=== PATIENT | male | born 1975 | race Caucasian/White ===

== ENCOUNTER 2017-02-14 12:49 | Observation (INO) | payer MEDICAID, OTHER ==
[2017-02-14] MEDS ORDERED: NORMAL SALINE 1000 ML 1,000 ML IV ONE (14:01)
[2017-02-14] MEDS ORDERED: VANCOMYCIN HCL INJ 1000 MG VIAL IV ONE (14:03)
--- NOTE | 2017-02-14 14:04 | ER Document Report ---
ED Medical Screen (RME) - General Chief Complaint: Abscess Stated Complaint: FEVER Time Seen by Provider: 02/14/17 14:01 Notes: Patient states he fell against a car door on Sunday. He states that initially started as a small straight. But now it has progressed and become red swollen and tender. He also states he is having swelling and tenderness in his joints and has fever and body aches. He states that he did inject IV drugs in the past but has not done any IV drugs in over one year. TRAVEL OUTSIDE OF THE [place] IN LAST 30 DAYS: No - Related Data Allergies/Adverse Reactions: No Known Allergies Allergy (Verified 02/14/17 13:04) Past Medical History - Social History Chew tobacco use (# tins/day): No Frequency of alcohol use: None Drug Abuse: None Renal/ Medical History: Denies: Hx Peritoneal Dialysis Physical Exam - Vital signs Vitals: Temp Pulse Resp BP Pulse Ox 100.1 F 100 18 151/103 H 100 02/14/17 13:03 02/14/17 13:03 02/14/17 13:03 02/14/17 13:03 02/14/17 13:03 Course - Vital Signs Vital signs: Temp Pulse Resp BP Pulse Ox 100.1 F 100 18 151/103 H 100 02/14/17 13:03 02/14/17 13:03 02/14/17 13:03 02/14/17 13:03 02/14/17 13:03
--- NOTE | 2017-02-14 14:58 | ER Document Report ---
ED Skin Rash/Insect Bite/Abscs <HOWARD FENTON - Last Filed: 02/14/17 19:29> - General Mode of Arrival: Ambulatory Information source: Patient TRAVEL OUTSIDE OF THE [place] IN LAST 30 DAYS: No <TERENCE HUSSEIN - Last Filed: 02/15/17 10:40> - General Chief Complaint: Abscess Stated Complaint: FEVER Time Seen by Provider: 02/14/17 14:01 Notes: Patient is a 41-year-old male that presents to the emergency department today with complaints of an infection to the right side of his neck. Patient states that he has a history of iv drug abuse but he has not used in x1.5 years. Patient states that he lost his balance four days ago and hit his neck on the corner of a car door which caused a scrape. Patient states he had a fever of 102 yesterday. (TERENCE HUSSEIN) - Related Data Allergies/Adverse Reactions: No Known Allergies Allergy (Verified 02/14/17 13:04) Home Medications: Current Home Medications Clonidine HCl [Catapres 0.2 mg Tablet] 0.2 mg PO QHS 02/14/17 [History] Mirtazapine [Remeron 15 mg Tablet] 15 mg PO QHS 02/14/17 [History] Venlafaxine HCl [Venlafaxine HCl ER] 150 mg PO DAILY 02/14/17 [History] Past Medical History - General Information source: Patient - Social History Smoking Status: Current Every Day Smoker Cigarette use (# per day): Yes Chew tobacco use (# tins/day): No Frequency of alcohol use: None Drug Abuse: None, Other - Hx of IV drug abuse, non in the last year Family History: Reviewed & Not Pertinent - Medical History Medical History: Negative Surgical Hx: Negative <TERENCE HUSSEIN - Last Filed: 02/15/17 10:40> Review of Systems - Review of Systems Constitutional: No symptoms reported EENT: No symptoms reported Cardiovascular: No symptoms reported Respiratory: No symptoms reported Gastrointestinal: No symptoms reported Genitourinary: No symptoms reported Male Genitourinary: No symptoms reported Musculoskeletal: No symptoms reported Skin: See HPI, Other - abscess to right neck Hematologic/Lymphatic: No symptoms reported Neurological/Psychological: No symptoms reported -: Yes All other systems reviewed and negative <TERENCE HUSSEIN - Last Filed: 02/15/17 10:40> Physical Exam <HOWARD FENTON - Last Filed: 02/14/17 19:29> <TERENCE HUSSEIN - Last Filed: 02/15/17 10:40> - Vital signs Vitals: Temp Pulse Resp BP Pulse Ox 100.1 F 100 18 151/103 H 100 02/14/17 13:03 02/14/17 13:03 02/14/17 13:03 02/14/17 13:03 02/14/17 13:03 - Notes Notes: Physical Exam: General: Alert, appears well. HEENT: Normocephalic. Atraumatic. PERRL. Extraocular movements intact. Oropharynx clear. Neck: Supple. Indurated area to right anterior neck, 5x5 cm area of erythema with central scab, no fluctuance or purulent drainage. Respiratory: No respiratory distress. Clear and equal breath sounds bilaterally. Cardiovascular: Tachycardic, regular rhythm. Abdominal: Normal Inspection. Non-tender. No distension. Normal Bowel Sounds. Back: Non-tender. No deformity or step off. Extremities: Moves all four extremities. Upper extremities: Normal inspection. Normal ROM. Lower extremities: Normal inspection. No edema. Normal ROM. Neurological: Normal cognition. AAOx4. Normal speech. Psychological: Normal affect. Normal Mood. Skin: see neck exam (TERENCE HUSSEIN) Course - Laboratory Result Diagrams: 02/14/17 15:20 02/14/17 15:20 - Consults Dr. Peterson Time consulted: 19:20 <HOWARD FENTON - Last Filed: 02/14/17 19:29> - Laboratory Result Diagrams: 02/15/17 06:25 02/15/17 06:25 <TERENCE HUSSEIN - Last Filed: 02/15/17 10:40> - Re-evaluation Re-evalutation: 02/14/17 18:43 Patient appears to have a fairly significant cellulitis of the right neck with systemic symptoms including fever. Work looks reasonable. CT scan does not show drainable abscess. There is an overlying wound where I suspect patient had laceration or some penetration. There is no deep structures involved. We will see if the hospitalist can admit the patient as he has no local physician and states he is from [place] where his injury occurred. 02/14/17 18:51 Hospitalists are in report at shift change and unavailable. (HOWARD FENTON) - Vital Signs Vital signs: Temp Pulse Resp BP Pulse Ox 97.9 F 78 16 123/74 99 02/14/17 22:50 02/15/17 07:00 02/14/17 22:50 02/14/17 22:50 02/14/17 22:50 - Laboratory Laboratory results interpreted by me: 02/14/17 02/14/17 02/14/17 14:05 15:20 15:20 Hgb 12.8 L Hct 37.2 L Sodium 136.5 L Potassium 3.5 L Urine Urobilinogen 2.0 H Ur Leukocyte Esterase TRACE H Discharge - Discharge Admitting Provider: Dr. Peterson Unit Admitted: Telemetry <HOWARD FENTON - Last Filed: 02/14/17 19:29> <TERENCE HUSSEIN - Last Filed: 02/15/17 10:40> - Discharge Clinical Impression: Cellulitis and abscess of neck Condition: Good Disposition: ADMITTED OBSERVATION Scribe Documentation - Scribe Written by Scribe:: Charles Jaimes, 02/14/2017 1549 acting as scribe for :: Antoine <TERENCE HUSSEIN - Last Filed: 02/15/17 10:40>
[2017-02-14 15:04] LABS: APPEARANCE,URINE CLEAR; BILIRUBIN,URINE NEGATIVE (NEGATIVE); GLUCOSE, URINE NEGATIVE (NEGATIVE); KETONES,URINE NEGATIVE (NEGATIVE); URINE SPECIFIC GRAVITY 1.019
[2017-02-14 15:05] LABS: PROTEIN,URINE NEGATIVE (NEGATIVE)
[2017-02-14 15:06] LABS: LEUKOCYTE ESTERASE,URINE TRACE (NEGATIVE); NITRITE,URINE NEGATIVE (NEGATIVE)
[2017-02-14 15:07] LABS: BACTERIA,URINE TRACE /HPF; RBC,URINE 0-1 /HPF
[2017-02-14 15:39] LABS: VENOUS BLOOD BASE EXCESS 2.6 mmol/L; VENOUS BLOOD HCO3 28.4 mmol/L (20-32); VENOUS BLOOD PCO2 48.4 mmHg (35-63); VENOUS BLOOD PH 7.39 (7.30-7.42)
[2017-02-14 15:41] LABS: ABSOLUTE EOSINOPHILS # (AUTO) 0.3 10^3/uL (0.0-0.6); ABSOLUTE LYMPHOCYTES (AUTO) 2.1 10^3/uL (0.5-4.7); ABSOLUTE NEUT (AUTO) 6.2 10^3/uL (1.7-8.2); BASOPHILS % (AUTO) 0.3 % (0-2); EOSINOPHILS % (AUTO) 3.3 % (0-6); HEMATOCRIT 37.2 % (37.9-51.0); HEMOGLOBIN 12.8 g/dL (13.5-17.0); HGB HCT DIFFERENCE 1.2; LYMPHOCYTES % (AUTO) 21.7 % (13-45); MEAN CORPUSCULAR HEMOGLOBIN 28.8 pg (27.0-33.4); MEAN CORPUSCULAR HGB CONC 34.4 g/dL (32.0-36.0); MEAN CORPUSCULAR VOLUME 84 fl (80-97); MONOCYTES % (AUTO) 10.8 % (3-13); RED BLOOD COUNT 4.43 10^6/uL (4.35-5.55); RED CELL DISTRIBUTION WIDTH 13.7 % (11.5-14.0); SEGMENTED NEUTROPHILS % (AUTO) 63.9 % (42-78); WHITE BLOOD COUNT 9.7 10^3/uL (4.0-10.5)
[2017-02-14 15:49] LABS: PROTHROMBIN TIME 13.3 SEC (11.4-15.4)
[2017-02-14 16:14] LABS: ALANINE AMINOTRANSFERASE 55 U/L (21-72); ALBUMIN 4.1 g/dL (3.5-5.0); ALKALINE PHOSPHATASE 98 U/L (38-126); ANION GAP 8 (5-19); ASPARTATE AMINO TRANSFERASE 40 U/L (17-59); BILIRUBIN,DIRECT 0.4 mg/dL (0.0-0.4); BILIRUBIN,TOTAL 0.5 mg/dL (0.2-1.3); BLOOD UREA NITROGEN 10 mg/dL (7-20); CALCIUM 9.2 mg/dL (8.4-10.2); CARBON DIOXIDE 29 mmol/L (22-30); CHLORIDE 100 mmol/L (98-107); CREATININE RESULT 0.68 mg/dL (0.52-1.25); GLUCOSE 93 mg/dL (75-110); POTASSIUM 3.5 mmol/L (3.6-5.0); SODIUM 136.5 mmol/L (137-145); TOTAL PROTEIN 7.5 g/dL (6.3-8.2)
[2017-02-14 16:50] LABS: URINE BARBITURATES SCREEN NEGATIVE; URINE METHADONE SCREEN NEGATIVE; URINE OPIATES LOW UNCONFIRMED POSITIVE; URINE PHENCYCLIDINE SCREEN NEGATIVE
--- NOTE | 2017-02-14 17:23 | RADIOLOGY REPORT (SQ) ---
EXAM DESCRIPTION: CT SOFT TISSUE NECK WITH COMPLETED DATE/TIME: 02/14/2017 4:57 pm REASON FOR STUDY: pain/fever COMPARISON: None. TECHNIQUE: Post IV contrasted scanning from skull base through lung apices with review of bone, soft tissue and lung windows. Reconstructed coronal and sagittal MPR images reviewed. All images stored on PACS. All CT scanners at this facility use dose modulation, iterative reconstruction, and/or weight based d osing when appropriate to reduce radiation dose to as low as reasonably achievable (ALARA). [facility]: Dose Right [facility]: CareDose [facility]: Dose Right [facility]: Teradose 4D [facility]: CustEx CONTRAST TYPE AND DOSE: contrast/concentration: Isovue 370.00 mg/ml; Total Contrast Delivered: 74.0 ml; Total Saline Delivered: 25.7 ml RENAL FUNCTION: Creatinine 0.7 BUN 10 RADIATION DOSE: Up-to-date CT equipment and radiation dose reduction techniques were employed. CTDIv ol: 13.8 mGy. DLP: 472 mGy-cm. . LIMITATIONS: None. FINDINGS: SKULL BASE: Intact. MAJOR SALIVARY GLANDS: No solid or cystic masses. No inflammatory changes. LYMPHADENOPATHY: No adenopathy. MUCOSAL MASSES OR ASYMMETRY: No mucosal masses or asymmetry. LARYNX/CORDS: No abnormal findings. VASCULAR STRUCTURES: The major vessels are patent. LUNG APICES: Clear. BONES: Intact. THYROID: Normal size. No masses. PARANASAL SINUSES: Clear. OTHER: In the subcutaneous fat on the right side anterior to the platysma muscle there is some air. There is thickening of the platysma. These findings are seen on the axial images 65 through 74, the sagittal images 19 through 22, coronal images 31 through 34. IMPRESSION: In the absence of a history of penetrating injury, the findings in the right side of the neck are concerning for infection with a gas-forming organism. COMMENT: The findings were discussed with the ordering physician at 1717 hours on this date. TECHNICAL DOCUMENTATION: JOB ID: [id number] Quality ID # [id number]: Final reports with documentation of one or more dose reduction techniques (e.g., Au tomated exposure control, adjustment of the mA and/or kV according to patient size, use of iterative reconstruction technique) 2010 [employer]- All Rights Reserved
[2017-02-14] MEDS ORDERED: CEFAZOLIN 1 GM/D5W RTU 1 GM/50 ML RTUPB IV ONE (19:23)
[2017-02-14] MEDS ORDERED: DIPH/PERTUSS(ACELL)/TETANUS VAC/PF 0.5 ML SYR (>=10YO) IM ONE (19:25)
[2017-02-14] MEDS ORDERED: NICOTINE 14 MG/24 HR PATCH.TD24 TD PRN (22:10)
[2017-02-14] MEDS ORDERED: PROMETHAZINE HCL 25 MG TABLET PO PRN (22:11)
[2017-02-14] MEDS ORDERED: MORPHINE SULFATE 10 MG/ML INJ IV PRN (22:11)
[2017-02-14] MEDS ORDERED: ACETAMINOPHEN 325 MG TABLET PO PRN (22:11)
[2017-02-14] MEDS ORDERED: MAGNESIUM HYDROXIDE SUSP 30 ML UDCUP PO PRN (22:12)
[2017-02-14] MEDS ORDERED: CLONIDINE HCL 0.2 MG TABLET PO SCH (22:15)
[2017-02-14] MEDS ORDERED: VANCOMYCIN HCL 0 MG in DEXTROSE 5%-WATER 250 ML IV NR (22:15)
--- NOTE | 2017-02-14 22:33 | PDOC H&P ---
History of Present Illness Admission Date/PCP: 02/14/17 19:58 Patient is visiting the area from [place], and will be going back soon. Patient complains of: Swelling pain and redness, right side of neck; fever History of Present Illness: YULY BRADEN is a 41 year old male with underlying hypertension, asymptomatic nephrolithiasis, mild anxiety and depression, without suicidal or homicidal ideation, and history of IV drug abuse, with recent use of cocaine who presents to the emergency room for evaluation of above complaint. Patient has been discussed with emergency room physician who evaluated the patient. 2 days ago, while stepping out of a car he slipped and struck the right side of his neck on the door of the car. Since then, has noted gradually increasing redness, tenderness, and firmness on the right side of his neck. Fever to 102 yesterday. He has had nausea but no vomiting. No diarrhea. No difficulty swallowing or difficulty breathing. No history of MRSA infection. Also was complaining of mild swelling in his hands along with mild wrist pain, which he states is intermittent problem for him. Recent recurrence of the complaints 2 or 3 days ago. States he has been told he has carpal tunnel problems. Dictation via voice recognition software. Laboratory results are listed in [facility] and are reviewed. X-ray summary results are listed below, with full report(s) reviewed. CT report discussed with on-call radiologist, Dr. Lay, at 7:47 PM, 02/14/2017. No evidence of abscess. No evidence of airway compression, shift, or compromise. Social history/personal habits: Single. No children. 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 Half pack of cigarettes per day. No alcohol use for 1 year. Initially told the emergency room physician he had not used illicit drugs for 1- 1/2 years. However, drug screen positive for cocaine, he states he has used cocaine "recently." Home medications initially autopopulated into [facility] may not accurately reflect patient's true medications, dosages, and/or frequencies. care tech has reconciled medications. Medication list also discussed with patient. REVIEW OF SYSTEMS: Constitutional: See history and present illness. Eyes: No vision complaints. ENT: No swallowing problems or complaints. Denies hearing loss. Pulmonary: No current complaints. Cardiovascular: No current complaints, including chest pain. Gastrointestinal: See history and present illness. Skin: See history and present illness. Hematologic: Denies easy bruising. Neurologic: No current complaints, including numbness or tingling. Musculoskeletal: See history and present illness. Psychiatric: Mild anxiety and depression. Denies suicidal or homicidal ideation. Endocrine: No current complaints, including polyuria. Genitourinary: No current complaints, including dysuria. PHYSICAL EXAMINATION: Blood pressure 137/81. Pulse 98 and regular. 98% saturation on room air. Respirations are 20 and unlabored. 5 feet 5 inches tall. 76.1 kg. BMI 27.9 kg /m. Temperature 99.9; 100.1 upon presentation to the emergency room. Well-nourished well-developed male appearing perhaps a bit younger than his stated age. Pleasant awake alert and cooperative. Somewhat anxious, although no maia agitation. Skin is warm and dry. No grossly obvious evidence of rash in areas of skin examined. No subcutaneous nodules palpated. ENT: Hearing grossly normal to normal conversation. Tongue midline on protrusion pink and slightly tacky. Examination of the right side of his neck reveals area of mild inflammation extending approximately 7 x 12 cm, with an area of induration and slight tenderness extending approximately 7 x 8 cm. Small eschar at the center of the area of inflammation and swelling. No crepitus fluctuance or expressible discharge. Single slightly enlarged palpable right posterior cervical node noted at the border of the area of inflammation. Area of inflammation outlined by skin marker at 8:47 PM, 02/14/2017. No left-sided tenderness or inflammation. Eyes: No scleral icterus. Pupils equal and reactive to light at 4 mm. [place] conjunctivae. Neck is supple to gentle active range of motion and palpation. Midline trachea. No palpable thyroid nodule mass enlargement or tenderness. Lymphatic: See above comments. No palpable left cervical or clavicular nodes. Neck and lymphatic exams limited by patient body habitus, along with area involved by cellulitis. Psychiatric: Reasonable insight into acute and chronic medical issues. Oriented to time location and why here. Lungs: Auscultation reveals clear and equal breath sounds bilaterally. No use of accessory respiratory muscles. Cardiovascular: Heart regular rate and rhythm, without gallop murmur or rub. No carotid or abdominal aortic bruits. No ankle or pedal edema. Palpable dorsalis pedis pulses. Abdomen:soft slightly distended nontender with positive bowel sounds. Unable to adequately evaluate abdomen for masses or organomegaly due to distention. Extremities: Feet are warm and dry. No calf tenderness to compression. No grossly obvious visual evidence of calf swelling. Gentle manipulation of lower extremities fails to reveal any obvious evidence of injury or instability to knees hips or ankles. Perhaps very mild soft tissue swelling of hand and fingers, which patient states is a usual problem he has had intermittently for some time now; See history and present illness. Swelling is symmetric. Hand and fingers are warm and dry. Swelling very mild and not overly remarkable. No crepitus fluctuance inflammation or expressible discharge. Neurologic: Moves upper extremities grossly normally. Patellar reflexes absent. Absent Babinski. Light touch is intact at feet. Dorsiflexion and plantarflexion of feet 5 / 5 and symmetric. Past Medical History Cardiac Medical History: Reports: Hypertension Denies: Atrial Fibrillation, Congestive Heart Failure, Coronary Artery Disease, DVT, Myocardial Infarction, Hyperlipidema, Pulmonary Embolism Pulmonary Medical History: Denies: Asthma, Sleep Apnea EENT Medical History: Denies: Eyes, Ears, Throat Neurological Medical History: Denies: Hemorrhagic CVA, Ischemic CVA, Seizures Endocrine Medical History: Denies: Diabetes Mellitus Type 1, Diabetes Mellitus Type 2, Hyperthyroidism, Hypothyroidism Renal/ Medical History: Reports: Nephrolithiasis GI Medical History: Denies: Cirrhosis, Gastroesophageal Reflux Disease, Hepatitis, Peptic Ulcer Disease Musculoskeltal Medical History: Reports: Other - See history and present illness , 02/14/2017. Skin Medical History: Reports: None Psychiatric Medical History: Reports: Depression, General Anxiety Disorder, Substance Abuse, Tobacco Dependency Denies: Alcohol Dependency Hematology: Reports: None Infectious Medical History: Denies: Hepatitis B, Hepatitis C, Methicillin-Resistant Staph Aureus Past Surgical History Past Surgical History: Reports: None Social History Information Source: Patient, Emergency Med Personnel, [facility] Records Smoking Status: Current Every Day Smoker Frequency of Alcohol Use: None Hx Recreational Drug Use: Yes Drugs: Cocaine - Advance Directive Resuscitation Status: Full Code Surrogate healthcare decision maker:: Mother Family History Parental Family History Reviewed: Yes - Parents are healthy Children Family History Reviewed: NA Sibling(s) Family History Reviewed.: Yes - Healthy Medication/Allergy Home Medications: RX: Clonidine HCl [Catapres 0.2 mg Tablet] 0.2 mg PO QHS 02/14/17 RX: Mirtazapine [Remeron 15 mg Tablet] 15 mg PO QHS 02/14/17 RX: Venlafaxine HCl [Venlafaxine HCl ER] 150 mg PO DAILY 02/14/17 Amox Tr/Potassium Clavulanate [Augmentin 875-125 mg Tablet] 1 tab PO BID #20 tablet 02/16/17 RX: Acetaminophen [Tylenol 325 mg Tablet] 650 mg PO Q4HP PRN tablet 02/16/17 RX: Mirtazapine [Remeron 15 mg Tablet] 15 mg PO QHS tablet 02/16/17 RX: Venlafaxine HCl ER [Effexor Xr 75 mg Cap.sr] 150 mg PO DAILY cap.sr.24h Allergies/Adverse Reactions: No Known Allergies Allergy (Verified 02/14/17 13:04) Physical Exam Vital Signs: Temp Pulse Resp BP Pulse Ox 99.9 F 93 16 157/98 H 100 02/14/17 19:38 02/14/17 19:38 02/14/17 22:01 02/14/17 22:00 02/14/17 22:01 Results Impressions: Soft Tissue Neck CT 02/14/17 14:02 IMPRESSION: In the absence of a history of penetrating injury, the findings in the right side of the neck are concerning for infection with a gas-forming organism. Assessment & Plan - Diagnosis (1) Cellulitis and abscess of neck Is this a current diagnosis for this admission?: Yes Plan: Elevate head of bed at least 60. N.p.o. after midnight. Ancef and intravenous vancomycin; pharmacy to assist with vancomycin dosing. Surgery consult. Order written for nursing staff to notify physician immediately for any respiratory distress and/or difficulty swallowing. Same urged to patient. I have strongly encouraged patient to be careful getting out of bed, to avoid a fall with injury. Knee high SCDs for DVT prophylaxis, along with subcutaneous Lovenox. Impression and plans were discussed with patient, who concurs. Time spent in evaluation and management of patient: 68 minutes. (2) Cocaine abuse Is this a current diagnosis for this admission?: Yes (3) Anxiety Is this a current diagnosis for this admission?: Yes Plan: Resume home medications as appropriate once these have been determined and reviewed. (4) HTN (hypertension) Qualifiers: Hypertension type: essential hypertension Qualified Code(s): I10 - Essential (primary) hypertension Is this a current diagnosis for this admission?: Yes Plan: Resume home medications as appropriate once these have been determined and reviewed. (5) Tobacco dependency Is this a current diagnosis for this admission?: Yes Plan: As needed nicotine patch. - Time Time Spent: 50 to 70 Minutes Medications reviewed and adjusted accordingly: Yes Anticipated discharge: Home Within: within 48 hours
[2017-02-14] MEDS ORDERED: VANCOMYCIN HCL INJ 1000 MG VIAL IV PRN (23:02)
[2017-02-14] MEDS ORDERED: VANCOMYCIN HCL 1,250 MG in DEXTROSE 5%-WATER 250 ML IV ONE (23:15)
[2017-02-14] MEDS ORDERED: VANCOMYCIN HCL INJ 1000 MG VIAL ONE (23:17)
[2017-02-14] MEDS: POTASSIUM CHLORIDE 20 MEQ/15 ML UDCUP PO SCH ×2 (23:19→23:50)
[2017-02-14] MEDS: DEXTROSE 5%-NORMAL SALINE 1,000 ML IV PRN (23:25)
[2017-02-15 06:39] LABS: ABSOLUTE EOSINOPHILS # (AUTO) 0.4 10^3/uL (0.0-0.6); ABSOLUTE LYMPHOCYTES (AUTO) 2.5 10^3/uL (0.5-4.7); ABSOLUTE NEUT (AUTO) 3.4 10^3/uL (1.7-8.2); BASOPHILS % (AUTO) 0.5 % (0-2); EOSINOPHILS % (AUTO) 5.9 % (0-6); HEMATOCRIT 36.8 % (37.9-51.0); HEMOGLOBIN 12.8 g/dL (13.5-17.0); HGB HCT DIFFERENCE 1.6; LYMPHOCYTES % (AUTO) 33.4 % (13-45); MEAN CORPUSCULAR HEMOGLOBIN 28.9 pg (27.0-33.4); MEAN CORPUSCULAR HGB CONC 34.8 g/dL (32.0-36.0); MEAN CORPUSCULAR VOLUME 83 fl (80-97); MONOCYTES % (AUTO) 13.5 % (3-13); RED BLOOD COUNT 4.43 10^6/uL (4.35-5.55); RED CELL DISTRIBUTION WIDTH 14.1 % (11.5-14.0); SEGMENTED NEUTROPHILS % (AUTO) 46.7 % (42-78); WHITE BLOOD COUNT 7.3 10^3/uL (4.0-10.5)
[2017-02-15 06:50] LABS: ANION GAP 8 (5-19); BLOOD UREA NITROGEN 7 mg/dL (7-20); CALCIUM 8.8 mg/dL (8.4-10.2); CARBON DIOXIDE 24 mmol/L (22-30); CHLORIDE 109 mmol/L (98-107); CREATININE RESULT 0.61 mg/dL (0.52-1.25); GLUCOSE 101 mg/dL (75-110); POTASSIUM 4.1 mmol/L (3.6-5.0); SODIUM 140.9 mmol/L (137-145)
[2017-02-15] MEDS ORDERED: MORPHINE SULFATE 10 MG/ML INJ IV PRN (08:30)
[2017-02-15] MEDS ORDERED: ACETAMINOPHEN 325 MG TABLET PO PRN (08:30)
[2017-02-15] MEDS ORDERED: MAGNESIUM HYDROXIDE SUSP 30 ML UDCUP PO PRN (08:30)
[2017-02-15] MEDS ORDERED: PROMETHAZINE HCL 25 MG TABLET PO PRN (08:30)
[2017-02-15] MEDS ORDERED: NICOTINE 14 MG/24 HR PATCH.TD24 TD PRN (08:30)
--- NOTE | 2017-02-15 08:54 | PDOC PROGRESS REPORT ---
Subjective Progress Note for:: 02/15/17 Subjective:: Patient is seen this morning resting in bed comfortably.He reports that he slept well overnight and that pain was well controlled. He reports a decreased sensation of tightness to his right lateral neck. He does inquire about surgical consultation as he is hopeful to be discharged tomorrow so that he may continue with his plans to move to [place] this weekend. He reports that his nausea has resolved and is hungry this morning. He denies fever, chills, body aches, nausea, vomiting. He has no other questions or concerns. Review of systems otherwise negative. Physical Exam Vital Signs: Temp Pulse Resp BP Pulse Ox 97.9 F 78 16 123/74 99 02/14/17 22:50 02/15/17 07:00 02/14/17 22:50 02/14/17 22:50 02/14/17 22:50 Intake & Output 02/14/17 02/15/17 02/16/17 06:59 06:59 06:59 Intake Total 0 Output Total 0 Balance 0 Weight 76.9 kg General appearance: PRESENT: no acute distress, cooperative, well-developed, well-nourished Head exam: PRESENT: atraumatic, normocephalic Eye exam: PRESENT: conjunctiva pink, EOMI, PERRLA. ABSENT: scleral icterus Ear exam: PRESENT: normal external ear exam Mouth exam: PRESENT: moist, neck supple, tongue midline Neck exam: PRESENT: full ROM, lymphadenopathy - A single slightly enlarged palpable right posterior cervical node to the border of inflammation is noted. No anterior cervical lymph nodes palpable. No supraclavicular palpable nodes., tenderness, other - Area of erythema has decreased to that of area of induration measuring approximately 5 x 8 cm. A 1 cm round shallow lesion with eschar to the base of the lesion noted to the center of area of inflammation and swelling. No crepitus palpable. No expressible drainage noted. No left- sided tenderness or inflammation present.. ABSENT: JVD Respiratory exam: PRESENT: clear to auscultation [place], symmetrical, unlabored. ABSENT: crackles, rales, rhonchi, wheezes Cardiovascular exam: PRESENT: RRR, +S1, +S2. ABSENT: gallop, rubs, systolic murmur Pulses: PRESENT: normal radial pulses Vascular exam: PRESENT: normal capillary refill GI/Abdominal exam: PRESENT: normal bowel sounds, soft. ABSENT: guarding, mass, organolmegaly, tenderness Rectal exam: PRESENT: deferred Extremities exam: PRESENT: full ROM. ABSENT: tenderness Musculoskeletal exam: PRESENT: ambulatory, full ROM Neurological exam: PRESENT: alert, awake, oriented to person, oriented to place , oriented to time, oriented to situation, CN II-XII grossly intact. ABSENT: motor sensory deficit Psychiatric exam: PRESENT: appropriate affect, normal mood Skin exam: PRESENT: dry, normal color, warm, other - As above Results Laboratory Results: 02/15/17 06:25 02/15/17 06:25 02/15/17 02/15/17 06:25 06:25 WBC 7.3 RBC 4.43 Hgb 12.8 L Hct 36.8 L MCV 83 MCH 28.9 MCHC 34.8 RDW 14.1 H Plt Count 206 Seg Neutrophils % 46.7 Lymphocytes % 33.4 Monocytes % 13.5 H Eosinophils % 5.9 Basophils % 0.5 Absolute Neutrophils 3.4 Absolute Lymphocytes 2.5 Absolute Monocytes 1.0 Absolute Eosinophils 0.4 Absolute Basophils 0.0 Sodium 140.9 Potassium 4.1 Chloride 109 H Carbon Dioxide 24 Anion Gap 8 BUN 7 Creatinine 0.61 Est GFR ( Amer) > 60 Est GFR (Non-Af Amer) > 60 Glucose 101 Calcium 8.8 Impressions: Soft Tissue Neck CT 02/14/17 14:02 IMPRESSION: In the absence of a history of penetrating injury, the findings in the right side of the neck are concerning for infection with a gas-forming organism. Assessment & Plan - Diagnosis (1) Cellulitis and abscess of neck Is this a current diagnosis for this admission?: Yes Plan: Clinical improvement overnight. 1- Continue Ancef and Vancomycin; blood cultures pending 2- Appreciate surgical consultation; pending 3- Morphine as needed pain 4- Monitor closely for respiratory distress/or difficulty swallowing. (2) Cocaine abuse Is this a current diagnosis for this admission?: Yes Plan: 1- Monitor closely for withdrawal symptoms (3) Anxiety Is this a current diagnosis for this admission?: Yes Plan: 1-will resume medication: Effexor and Remeron (4) HTN (hypertension) Qualifiers: Hypertension type: essential hypertension Qualified Code(s): I10 - Essential (primary) hypertension Is this a current diagnosis for this admission?: Yes Plan: 1- Continue home medication: Clonidine 0.2 mg nightly 2- Will continue to monitor and adjust medications accordingly. (5) Tobacco dependency Is this a current diagnosis for this admission?: Yes Plan: 1-encouraged smoking cessation 2-nicotine with placement therapy - Time Time Spent with patient: 15-24 minutes
[2017-02-15] MEDS: ENOXAPARIN SODIUM INJ 40 MG/0.4 ML DISP.SYRIN SUBCUT SCH (10:19)
[2017-02-15] MEDS: DOCUSATE SODIUM 100 MG CAPSULE PO SCH ×2 (10:19→17:53)
[2017-02-15] MEDS: VENLAFAXINE HCL 75 MG CAP.SR.24H PO SCH (10:19)
[2017-02-15] MEDS: CEFAZOLIN 1 GM/D5W RTU 1 GM/50 ML RTUPB IV SCH ×2 (10:20→17:53)
[2017-02-15] MEDS: DEXTROSE 5%-NORMAL SALINE 1,000 ML IV PRN (12:12)
[2017-02-15] MEDS: VANCOMYCIN HCL 1,000 MG in DEXTROSE 5%-WATER 250 ML IV SCH ×2 (14:22→21:31)
[2017-02-15] MEDS ORDERED: MIRTAZAPINE 15 MG TABLET PO SCH (22:00)
[2017-02-16] MEDS: CEFAZOLIN 1 GM/D5W RTU 1 GM/50 ML RTUPB IV SCH ×2 (01:08→12:53)
[2017-02-16] MEDS: DEXTROSE 5%-NORMAL SALINE 1,000 ML IV PRN (01:11)
[2017-02-16] MEDS: VANCOMYCIN HCL 1,000 MG in DEXTROSE 5%-WATER 250 ML IV SCH (05:32)
[2017-02-16 12:36] VITALS: BP 134/82
[2017-02-16] MEDS: VENLAFAXINE HCL 75 MG CAP.SR.24H PO SCH (12:53)
[2017-02-16] MEDS: DOCUSATE SODIUM 100 MG CAPSULE PO SCH (12:53)
[2017-02-16] MEDS: ENOXAPARIN SODIUM INJ 40 MG/0.4 ML DISP.SYRIN SUBCUT SCH (12:53)
--- NOTE | 2017-02-16 14:20 | PDOC DISCHARGE SUMMARY ---
General - Admit/Disc Date/PCP Admission Date/Primary Care Provider: 02/14/17 22:12 Discharge Date: 02/16/17 - Discharge Diagnosis (1) Cellulitis and abscess of neck Is this a current diagnosis for this admission?: Yes Summary: Patient was admitted for 2 day history of redness, swelling, and pain to the right side of his neck after slipping and striking his neck against a car door. He had been feverish but had not experienced any difficulty with swallowing or breathing. CT of the neck demonstrated soft tissue changes concerning for cellulitis with gas-forming organism. He was placed on Ancef and vancomycin and ENT was consulted. The edema and erythema improved with antibiotic coverage, however the area of induration did not improve. Dr. Turk (ENT) had planned to take the patient to the OR today for I&D and packing. However, when reviewing the plan of care the pt informed Dr. Turk that he intended to leave today to help family moved to [place]. The importance of I&D and continue antibiotic therapy was stressed by both myself and Dr. Turk. Risk of worsening infection, sepsis, and respiratory distress secondary to obstruction to include potential for were reviewed with the patient. He acknowledged the risks related to leaving today prior to completion of medical therapy and elected to leave AGAINST MEDICAL ADVICE. Patient was provided a prescription for p.o. Augmentin. It was stressed that he would need to seek medical care as soon as possible upon arrival to [place] to include going to the emergency department or calling 911 in case of difficulty breathing. (2) Cocaine abuse Is this a current diagnosis for this admission?: Yes Summary: Patient denied recent illicit drug use, however urine toxicology was positive for cocaine and opiates. He did not demonstrate withdrawal symptoms while inpatient. He was strongly advised to avoid all illicit substances. (3) Anxiety Is this a current diagnosis for this admission?: Yes Summary: He was continued on his home regimen of Effexor and Remeron. (4) HTN (hypertension) Is this a current diagnosis for this admission?: Yes Summary: Home medication clonidine was continued. Pressure remained stable acceptable. (5) Tobacco dependency Is this a current diagnosis for this admission?: Yes - Additional Information Resuscitation Status: Full Code Discharge Diet: Regular Discharge Activity: Activity As Tolerated Home Medications: Clonidine HCl [Catapres 0.2 mg Tablet] 0.2 mg PO QHS 02/14/17 Mirtazapine [Remeron 15 mg Tablet] 15 mg PO QHS 02/14/17 Venlafaxine HCl [Venlafaxine HCl ER] 150 mg PO DAILY 02/14/17 Acetaminophen [Tylenol 325 mg Tablet] 650 mg PO Q4HP PRN tablet 02/16/17 Amox Tr/Potassium Clavulanate [Augmentin 875-125 mg Tablet] 1 tab PO BID #20 tablet 02/16/17 Mirtazapine [Remeron 15 mg Tablet] 15 mg PO QHS tablet 02/16/17 Venlafaxine HCl ER [Effexor Xr 75 mg Cap.sr] 150 mg PO DAILY cap.sr.24h History of Present Illness Patient complains of: Patient reports that his tenderness and sensation of tightness to the right neck has resolved. His primary concern today is to leave as soon as possible to take care of family commitments. History of Present Illness: Per H&P by Dr. Peterson: YULY BRADEN is a 41 year old male who presented with swelling pain and redness to right side of neck. 2 days ago, while stepping out of the car he slipped and struck the right side of his neck on the door of the car. Since then, he has noted gradual increasing redness, tenderness, and firmness on the right side of his neck. Fever to 102 yesterday. He has had nausea but no vomiting. No diarrhea. No difficulty swallowing or difficulty breathing. No history of MRSA infection. Also was complaining of mild swelling in the hands along with mild wrist pain, which he states is intermittent problem for him. Recent recurrence of the complaints 2 or 3 days ago. He states he has been told that he has carpal tunnel problems. Physical Exam Vital Signs: Temp Pulse Resp BP Pulse Ox 97.8 F 76 18 134/82 H 97 02/16/17 12:35 02/16/17 12:35 02/16/17 12:35 02/16/17 12:35 02/16/17 12:35 Intake & Output 02/15/17 02/16/17 02/17/17 06:59 06:59 06:59 Intake Total 0 4459 Output Total 0 Balance 0 4459 Weight 76.9 kg General appearance: PRESENT: no acute distress, well-developed, well-nourished Head exam: PRESENT: atraumatic, normocephalic Eye exam: PRESENT: conjunctiva pink, EOMI, PERRLA. ABSENT: scleral icterus Ear exam: PRESENT: normal external ear exam Mouth exam: PRESENT: moist, tongue midline Neck exam: PRESENT: lymphadenopathy - Slightly enlarged palpable right posterior cervical node. No anterior cervical lymph nodes or supraclavicular nodes palpable, tenderness, other - Approximately 5 x 8 cm area of erythema and induration. 1 cm round shallow lesion with eschar to the base of the lesion noted to the center of area of inflammation. Essentially unchanged from yesterday. No drainage present. No crepitus present.. ABSENT: carotid bruit, JVD, thyromegaly Respiratory exam: PRESENT: clear to auscultation [place]. ABSENT: rales, rhonchi, wheezes Cardiovascular exam: PRESENT: RRR. ABSENT: diastolic murmur, rubs, systolic murmur Pulses: PRESENT: normal dorsalis pedis pul Vascular exam: PRESENT: normal capillary refill GI/Abdominal exam: PRESENT: normal bowel sounds, soft. ABSENT: distended, guarding, mass, organolmegaly, rebound, tenderness Rectal exam: PRESENT: deferred Extremities exam: PRESENT: full ROM. ABSENT: calf tenderness, clubbing, pedal edema Neurological exam: PRESENT: alert, awake, oriented to person, oriented to place , oriented to time, oriented to situation, CN II-XII grossly intact. ABSENT: motor sensory deficit Psychiatric exam: PRESENT: appropriate affect, normal mood. ABSENT: homicidal ideation, suicidal ideation Skin exam: PRESENT: dry, intact, warm, other - As above. ABSENT: cyanosis, rash Results Laboratory Results: 02/15/17 06:25 02/15/17 06:25 Impressions: Soft Tissue Neck CT 02/14/17 14:02 IMPRESSION: In the absence of a history of penetrating injury, the findings in the right side of the neck are concerning for infection with a gas-forming organism. Qualifiers PATEINT BEING DISCHARGED WITH ANY OF THE FOLLOWING DIAGNOSIS?: No Plan Discharge Plan: Risks of leaving AGAINST MEDICAL ADVICE was stressed with the patient to include worsening erythema, edema, pain; worsening infection, sepsis; airway obstruction, . Patient was provided and a prescription for Augmentin. To seek additional medical follow-up as soon as possible upon arrival to [place].
== END 2017-02-16 13:25 | disposition left against medical advice (07) ==
LOC: ER 12:49 → UNDOADMOB 19:58 → EH 19:58 → 4S 22:45 → EH 22:45
PROVIDERS: ADMIT Family Medicine; ATTEND Family Medicine
PROC: 3E0234Z Introduction of Serum, Toxoid and Vaccine into Muscle, Percutaneous Approach (ICD-10-PCS; principal; 2017-02-14)
DX: L03.221 Cellulitis of neck (principal); F14.10 Cocaine abuse, uncomplicated; R78.1 Finding of opiate drug in blood; F41.9 Anxiety disorder, unspecified; I10 Essential (primary) hypertension; F17.210 Nicotine dependence, cigarettes, uncomplicated; R00.0 Tachycardia, unspecified; Z87.898 Personal history of other specified conditions; Z53.21 Procedure and treatment not carried out due to patient leaving prior to being seen by health care provider; R11.0 Nausea; R50.9 Fever, unspecified; M79.89 Other specified soft tissue disorders; M25.539 Pain in unspecified wrist; F32.9 Major depressive disorder, single episode, unspecified; N20.0 Calculus of kidney; Z23 Encounter for immunization
CPT/HCPCS: 36415; 70491; 80048; 80053; 80307; 81001; 82803; 83605; 85025; 85610; 87040; 87086; 90471; 90715; 96365; 96366; 96367; 99284; G0378; J0690; J1650; J3370; J7030; J7060